=== PATIENT | female | born 2005 | race Two or more races ===

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

== ENCOUNTER → 2025-05-11 | Outpatient (CLI) | payer MEDICAID, OTHER ==
[~2025-05-11] MED LIST changes: -IBUP-1022 PO; +IBUP600T42 PO
== END ==
LOC: M LAB 17:37
PROVIDERS: ATTEND Physician Assistant Medical
DX: Z32.01 Encounter for pregnancy test, result positive (principal)

== ENCOUNTER → 2025-05-18 | Outpatient (CLI) | payer OTHER | LOC: M LAB 13:35 | PROVIDERS: ATTEND Physician Assistant Medical | DX: Z32.01 Encounter for pregnancy test, result positive (principal) ==

== ENCOUNTER → 2025-06-06 | Outpatient (REF) | payer MEDICAID, OTHER | LOC: M PLALAB 09:31 | PROVIDERS: ATTEND Student in an Organized Health Care Education/Training Program | DX: Z53.9 Procedure and treatment not carried out, unspecified reason (principal) ==

== ENCOUNTER → 2025-06-06 | Outpatient (CLI) | payer MEDICAID, OTHER ==
[2025-06-06 14:04] LABS: PLATELET COUNT, AUTOMATED 320 10^3/uL (150-450)
[2025-06-06 14:35] LABS: HIV 1&2 SCREEN NEGATIVE (NEGATIVE)
[2025-06-06 14:44] LABS: HEPATITIS C VIRUS ABY INDEX < 0.02 INDEX (<0.8)
[2025-06-06 15:03] LABS: Trichomonas vaginalis (AMP) NOT DETECTED (NEGATIVE)
[2025-06-06 15:26] LABS: GC DNA AMPLIFICATION NEGATIVE (NEGATIVE)
== END ==
LOC: M PLALAB 09:42
PROVIDERS: ATTEND Student in an Organized Health Care Education/Training Program
DX: Z34.80 Encounter for supervision of other normal pregnancy, unspecified trimester (principal)

== ENCOUNTER 2025-07-04 23:36 | Emergency (ER) | payer OTHER ==
[~2025-07-04] VITALS: Ht 165.1 cm; Wt 58.0 kg
[2025-07-04 23:38] VITALS: BP 109/55; TEMP 97.7; O2SAT 100
== END 2025-07-04 23:54 | disposition left against medical advice (07) ==
LOC: M ED 23:36
DX: Z53.21 Procedure and treatment not carried out due to patient leaving prior to being seen by health care provider (principal)

== ENCOUNTER → 2025-07-04 | Outpatient (CLI) | payer OTHER | LOC: M PLALAB 10:48 | PROVIDERS: ATTEND Specialist | DX: Z34.82 Encounter for supervision of other normal pregnancy, second trimester (principal) ==

== ENCOUNTER → 2025-08-26 | Outpatient (REF) | payer OTHER, MEDICAID | LOC: M LAB REF 11:40 | PROVIDERS: ATTEND Physician Assistant | DX: R30.0 Dysuria (principal) ==

== ENCOUNTER → 2025-09-06 | Outpatient (CLI) | payer OTHER | LOC: M WHC 11:07 | PROVIDERS: ATTEND Specialist | DX: Z34.82 Encounter for supervision of other normal pregnancy, second trimester (principal); Z3A.19 19 weeks gestation of pregnancy ==